=== PATIENT | female | born 1935 | race Hispanic/Latino ===

== ENCOUNTER 2023-05-31 00:19 | Inpatient (IN) | payer MEDICAID, SELFPAY ==
[2023-05-31] MEDS ORDERED: Ipratropium/Albuterol 3 ML NEB ONE (00:46)
[2023-05-31] MEDS ORDERED: Acetaminophen 500 MG TAB ONE (00:53)
[2023-05-31 01:04] LABS: #Basophils 0.1 10x3/uL (0.0-0.2); #Eosinphils 0.1 10x3/uL (0.0-0.5); #Monocytes 0.9 10x3/uL (0.0-1.1); #Neutrophils 8.4 10x3/uL (1.5-8.4); %Basophils 0.7 % (0.0-2.0); %Eosinophils 1.1 % (0.0-6.0); %Lymphocytes 14.1 % (18.0-47.0); %Monocytes 7.4 % (0.0-10.0); %Neutrophils 73.8 % (40.0-75.0); Hematocrit 42.7 % (34.9-44.5); Hemoglobin 14.6 g/dL (12.0-15.5); Mean Corpuscular HGB CONC 34.2 g/dL (32.0-36.0); Mean Corpuscular Hemoglobin 29.9 pg (27.0-33.0); Mean Corpuscular Volume 87.5 fl (81.6-98.3); Mean Platelet Volume 8.4 fl (7.4-10.4); Platelet Count 339 10x3/uL (150-450); RBC Distribution Width 12.1 % (11.5-14.5); Red Blood Cell (RBC) Count 4.88 10x6/uL (3.90-5.03); White Blood Cell (WBC) Count 11.4 10x3/uL (3.5-10.5)
[2023-05-31] MEDS ORDERED: methylPREDNISolone Sod Succ/PF 125 MG/2 ML VIAL ONE (01:07)
[2023-05-31 01:13] LABS: PTT 27.4 sec (22.0-33.0); Prothrombin Time 10.6 sec (9.5-12.1)
[2023-05-31 01:17] LABS: ALT (SGPT) 22 U/L (8-55); AST (SGOT) 20 U/L (5-34); Albumin 3.5 g/dL (3.4-4.8); Alkaline Phosphatase 116 U/L (40-110); Anion Gap 19 mmol/L (10-20); BUN (Urea Nitrogen) 8 mg/dL (9.8-20.1); Bilirubin, Total 0.4 mg/dL (0.2-1.2); Calc. Creatinine Clearance 0 mL/min (70-130); Calcium 8.6 mg/dL (7.8-10.44); Carbon Dioxide 23 mmol/L (23-31); Chloride 94 mmol/L (98-107); Estimated GFR 50; Globulin 3.1 g/dL (2.4-3.5); Glucose 331 mg/dL (83-110); Lipase 34 U/L (8-78); Magnesium 1.3 mg/dL (1.6-2.6); Potassium 4.6 mmol/L (3.5-5.1); Protein, Total 6.6 g/dL (5.8-8.1); Sodium 131 mmol/L (136-145)
[2023-05-31] MEDS ORDERED: Piperacillin/Tazobactam 4.5 GM VIAL ONE (01:17)
[2023-05-31] MEDS ORDERED: Vancomycin 1 GM VIAL ONE (01:17)
[2023-05-31 01:23] LABS: Troponin I 0.012 ng/mL (< 0.028)
[2023-05-31 01:59] LABS: SARS-CoV-2 NAA Rapid Test Not Detected (NotDetected)
[2023-05-31] MEDS ORDERED: Ondansetron PF 4 MG/2 ML Vial IVP PRN (02:47)
[2023-05-31] MEDS ORDERED: Ipratropium/Albuterol 3 ML NEB EZPAP PRN (02:51)
[2023-05-31] MEDS ORDERED: Dextrose 50% Abboject 50 ML SYRINGE SLOW IVP PRN (02:52)
[2023-05-31] MEDS ORDERED: HumaLOG 300 UNITS/3 ML VIAL SC PRN ×2 (02:52)
[2023-05-31] MEDS ORDERED: Dextrose 5% in Water 1,000 ML IV PRN (02:52)
[2023-05-31] MEDS ORDERED: Glucagon 1 MG/ML KIT IM PRN (02:52)
[2023-05-31 04:10] LABS: Lactic Acid 3.7 mmol/L (0.5-2.2)
[2023-05-31 04:15] LABS: Anion Gap 18 mmol/L (10-20); BUN (Urea Nitrogen) 8 mg/dL (9.8-20.1); Calc. Creatinine Clearance 27 mL/min (70-130); Carbon Dioxide 20 mmol/L (23-31); Chloride 96 mmol/L (98-107); Estimated GFR 56; Glucose 312 mg/dL (83-110); Magnesium 1.2 mg/dL (1.6-2.6); Potassium 4.1 mmol/L (3.5-5.1); Sodium 130 mmol/L (136-145)
[2023-05-31 04:22] LABS: #Basophils 0.1 10x3/uL (0.0-0.2); #Eosinphils 0.1 10x3/uL (0.0-0.5); #Monocytes 0.4 10x3/uL (0.0-1.1); #Neutrophils 12.9 10x3/uL (1.5-8.4); %Basophils 0.5 % (0.0-2.0); %Eosinophils 0.5 % (0.0-6.0); %Lymphocytes 5.9 % (18.0-47.0); %Neutrophils 87.8 % (40.0-75.0); Hematocrit 38.5 % (34.9-44.5); Mean Corpuscular HGB CONC 33.8 g/dL (32.0-36.0); Mean Corpuscular Hemoglobin 30.1 pg (27.0-33.0); Mean Corpuscular Volume 89.1 fl (81.6-98.3); Mean Platelet Volume 8.5 fl (7.4-10.4); Platelet Count 330 10x3/uL (150-450); RBC Distribution Width 12.1 % (11.5-14.5); Red Blood Cell (RBC) Count 4.32 10x6/uL (3.90-5.03); White Blood Cell (WBC) Count 14.7 10x3/uL (3.5-10.5)
[2023-05-31] MEDS ORDERED: Magnesium 2 GM/50 ML(in water) 2 GM in Premix 1 BAG IVPB SCH (04:30)
[2023-05-31 04:32] LABS: Free T4 (Free Thyroxine) 1.37 ng/dL (0.70-1.48)
[2023-05-31 04:57] LABS: Base Excess (BEa) -2.1 mEq/L (-2.0 to +3.0); CO2 Tension 40.4 mmHg (35.0-45.0); Calcium, Ionized (arterial) 1.07 mmol/L (1.12-1.30); Carboxyhemoglobin (COHb) 0.1 gm% (0.0-3.0); Hematocrit-ABG 41 % (36.0-47.0); Potassium - ABG Lab 4.31 mmol/L (3.70-5.30); Puncture Site LRA; pH, Arterial 7.373 (7.35-7.45)
[2023-05-31] MEDS: Benzonatate 100 MG CAP PO PRN (04:59)
[2023-05-31] MEDS ORDERED: Vancomycin Dose by Levels Sliding Scale (Wt <71) FS SCH (05:00)
[2023-05-31] MEDS ORDERED: Sodium Chloride 0.9% 1,000 ML IV SCH (05:15)
[2023-05-31] MEDS ORDERED: Sodium Chloride 0.9% 500 ML IV SCH ×2 (05:15→08:30)
[2023-05-31] MEDS: methylPREDNISolone Sod Succ 40 MG VIAL IVP SCH ×2 (06:41→07:52)
[2023-05-31] MEDS: Ipratropium/Albuterol 3 ML NEB NEB SCH ×5 (06:54→22:45)
[2023-05-31 07:41] LABS: Lactic Acid 6.4 mmol/L (0.5-2.2)
[2023-05-31 08:24] LABS: Actual Bicarbonate (HCO3a) 19.3 mEq/L (22-28); Base Excess (BEa) -7.5 mEq/L (-2.0 to +3.0); Calcium, Ionized (arterial) 1.03 mmol/L (1.12-1.30); Carboxyhemoglobin (COHb) 0.3 gm% (0.0-3.0); Hematocrit-ABG 39 % (36.0-47.0); Hemoglobin (Hb) 13.3 g/dL (12.0-16.0); O2 Tension (PaO2), arterial 65.1 mmHg (> 60.0); Potassium - ABG Lab 3.62 mmol/L (3.70-5.30); Puncture Site LBA
[2023-05-31] MEDS ORDERED: Iopamidol 370 76% 100 ML VIAL ONE (08:34)
[2023-05-31] MEDS ORDERED: FLU VACC QS2023(65UP)/MF59C/PF 60 MCG/0.5 ML SYRINGE IM ONE (09:00)
[2023-05-31] MEDS ORDERED: Lantus 1000 UNITS/10 ML VIAL SC SCH (09:00)
[2023-05-31 09:25] LABS: Vancomycin, Random 13.6 ug/mL (See Comment)
[2023-05-31] MEDS: HumaLOG 300 UNITS/3 ML VIAL SC PRN ×3 (09:28→15:41)
[2023-05-31] MEDS: Piperacillin/Tazobactam 3.375 GM in Sodium Chloride 0.9% 100 ML IVPB SCH ×2 (09:41→16:11)
[2023-05-31] MEDS: guaiFENesin/DM ER PO SCH ×2 (10:48→20:29)
[2023-05-31] MEDS: Vancomycin HCl 750 MG in Sodium Chloride 0.9% 250 ML 250 ML IVPB SCH (11:15)
[2023-05-31 12:10] LABS: Lactic Acid 10.6 mmol/L (0.5-2.2)
[2023-05-31] MEDS: Sodium Chloride 0.9% 1,000 ML IV SCH ×2 (12:27→17:51)
[2023-05-31 15:37] LABS: Hemoglobin A1c 9.9 % (4.0-6.0)
[2023-05-31] MEDS: Montelukast Sodium 10 mg Tablet PO SCH (20:29)
[2023-06-01] MEDS: Piperacillin/Tazobactam 3.375 GM in Sodium Chloride 0.9% 100 ML IVPB SCH ×3 (00:18→17:17)
[2023-06-01] MEDS: Ipratropium/Albuterol 3 ML NEB NEB SCH ×6 (02:50→23:10)
[2023-06-01 04:00] LABS: Anion Gap 14 mmol/L (10-20); BUN (Urea Nitrogen) 12 mg/dL (9.8-20.1); Calc. Creatinine Clearance 32 mL/min (70-130); Calcium 7.8 mg/dL (7.8-10.44); Carbon Dioxide 19 mmol/L (23-31); Chloride 108 mmol/L (98-107); Estimated GFR 68; Glucose 130 mg/dL (83-110); Magnesium 2.2 mg/dL (1.6-2.6); Sodium 137 mmol/L (136-145)
[2023-06-01 04:07] LABS: #Monocytes 0.8 10x3/uL (0.0-1.1); #Neutrophils 14.1 10x3/uL (1.5-8.4); %Basophils 0.2 % (0.0-2.0); %Eosinophils 0.1 % (0.0-6.0); %Lymphocytes 3.6 % (18.0-47.0); %Monocytes 4.9 % (0.0-10.0); %Neutrophils 89.4 % (40.0-75.0); Hematocrit 34.4 % (34.9-44.5); Hemoglobin 11.5 g/dL (12.0-15.5); Mean Corpuscular HGB CONC 33.4 g/dL (32.0-36.0); Mean Corpuscular Hemoglobin 30.4 pg (27.0-33.0); Mean Platelet Volume 8.8 fl (7.4-10.4); Platelet Count 320 10x3/uL (150-450); RBC Distribution Width 12.3 % (11.5-14.5); Red Blood Cell (RBC) Count 3.78 10x6/uL (3.90-5.03); White Blood Cell (WBC) Count 15.8 10x3/uL (3.5-10.5)
[2023-06-01] MEDS: Sodium Chloride 0.9% 1,000 ML IV SCH ×3 (08:17→11:49)
[2023-06-01] MEDS: guaiFENesin/DM ER PO SCH ×2 (08:18→21:05)
[2023-06-01] MEDS: methylPREDNISolone Sod Succ 40 MG VIAL IVP SCH (08:20)
[2023-06-01] MEDS: Vancomycin HCl 750 MG in Sodium Chloride 0.9% 250 ML 250 ML IVPB SCH (11:49)
[2023-06-01] MEDS: Lantus 1000 UNITS/10 ML VIAL SC SCH (12:26)
[2023-06-01] MEDS: HumaLOG 300 UNITS/3 ML VIAL SC PRN ×2 (12:27→17:17)
[2023-06-01] MEDS ORDERED: Sodium Chloride 3% (15 ML) NEB NEB SCH (21:00)
[2023-06-01] MEDS: Montelukast Sodium 10 mg Tablet PO SCH (21:05)
[2023-06-02] MEDS: Piperacillin/Tazobactam 3.375 GM in Sodium Chloride 0.9% 100 ML IVPB SCH ×3 (01:50→16:53)
[2023-06-02] MEDS: Sodium Chloride 0.9% 1,000 ML IV SCH ×2 (02:05→16:53)
[2023-06-02] MEDS: Ipratropium/Albuterol 3 ML NEB NEB SCH ×6 (02:30→23:15)
[2023-06-02 03:25] LABS: %Basophils 0.3 % (0.0-2.0); %Eosinophils 0.1 % (0.0-6.0); %Lymphocytes 9.4 % (18.0-47.0); %Monocytes 6.6 % (0.0-10.0); %Neutrophils 82.3 % (40.0-75.0); Hematocrit 37.4 % (34.9-44.5); Hemoglobin 12.2 g/dL (12.0-15.5); Mean Corpuscular HGB CONC 32.6 g/dL (32.0-36.0); Mean Corpuscular Volume 92.1 fl (81.6-98.3); Mean Platelet Volume 8.6 fl (7.4-10.4); Platelet Count 326 10x3/uL (150-450); RBC Distribution Width 12.7 % (11.5-14.5); Red Blood Cell (RBC) Count 4.06 10x6/uL (3.90-5.03); White Blood Cell (WBC) Count 15.8 10x3/uL (3.5-10.5)
[2023-06-02 03:34] LABS: Anion Gap 11 mmol/L (10-20); BUN (Urea Nitrogen) 11 mg/dL (9.8-20.1); Calc. Creatinine Clearance 35 mL/min (70-130); Calcium 8.1 mg/dL (7.8-10.44); Carbon Dioxide 22 mmol/L (23-31); Chloride 108 mmol/L (98-107); Estimated GFR 77; Glucose 65 mg/dL (83-110); Magnesium 1.8 mg/dL (1.6-2.6); Sodium 137 mmol/L (136-145)
[2023-06-02 07:27] LABS: Legionella Urinary Ag Negative (Negative); Strep pneumo Urine Ag NEGATIVE (NEGATIVE)
[2023-06-02] MEDS: methylPREDNISolone Sod Succ 40 MG VIAL IVP SCH (08:20)
[2023-06-02] MEDS: guaiFENesin/DM ER PO SCH ×2 (08:20→20:03)
[2023-06-02] MEDS: Sodium Chloride 3% (15 ML) NEB NEB SCH (08:37)
[2023-06-02 09:41] LABS: Reference Lab Name LABCORP
[2023-06-02] MEDS: Lantus 1000 UNITS/10 ML VIAL SC SCH (10:24)
[2023-06-02] MEDS ORDERED: Lantus 1000 UNITS/10 ML VIAL SC SCH (11:16)
[2023-06-02 11:23] LABS: Vancomycin, Trough 6.5 ug/mL
[2023-06-02] MEDS: HumaLOG 300 UNITS/3 ML VIAL SC PRN ×2 (11:57→17:07)
[2023-06-02] MEDS: Vancomycin HCl 750 MG in Sodium Chloride 0.9% 250 ML 250 ML IVPB SCH (11:59)
[2023-06-02] MEDS: Benzonatate 100 MG CAP PO PRN (13:51)
[2023-06-02] MEDS ORDERED: Amlodipine 10 MG TAB PO SCH (18:30)
[2023-06-02] MEDS: Montelukast Sodium 10 mg Tablet PO SCH (20:04)
[2023-06-02] MEDS: Vancomycin HCl 500 MG in Sodium Chloride 0.9% 100 ML IVPB SCH (23:15)
[2023-06-03] MEDS: Piperacillin/Tazobactam 3.375 GM in Sodium Chloride 0.9% 100 ML IVPB SCH ×3 (00:35→16:58)
[2023-06-03] MEDS: Ipratropium/Albuterol 3 ML NEB NEB SCH ×6 (03:05→23:50)
[2023-06-03] MEDS: Sodium Chloride 3% (15 ML) NEB NEB SCH (03:10)
[2023-06-03 03:24] LABS: #Basophils 0.1 10x3/uL (0.0-0.2); #Monocytes 0.8 10x3/uL (0.0-1.1); #Neutrophils 10.1 10x3/uL (1.5-8.4); %Basophils 0.4 % (0.0-2.0); %Eosinophils 0.2 % (0.0-6.0); %Lymphocytes 11.2 % (18.0-47.0); %Monocytes 6.6 % (0.0-10.0); %Neutrophils 79.2 % (40.0-75.0); Hematocrit 39.3 % (34.9-44.5); Mean Corpuscular HGB CONC 33.1 g/dL (32.0-36.0); Mean Corpuscular Volume 90.8 fl (81.6-98.3); Mean Platelet Volume 8.2 fl (7.4-10.4); Platelet Count 334 10x3/uL (150-450); RBC Distribution Width 12.6 % (11.5-14.5); Red Blood Cell (RBC) Count 4.33 10x6/uL (3.90-5.03); White Blood Cell (WBC) Count 12.8 10x3/uL (3.5-10.5)
[2023-06-03 03:45] LABS: Anion Gap 14 mmol/L (10-20); BUN (Urea Nitrogen) 10 mg/dL (9.8-20.1); Calc. Creatinine Clearance 37 mL/min (70-130); Calcium 8.4 mg/dL (7.8-10.44); Carbon Dioxide 22 mmol/L (23-31); Chloride 104 mmol/L (98-107); Estimated GFR 73; Glucose 127 mg/dL (83-110); Potassium 4.1 mmol/L (3.5-5.1); Sodium 136 mmol/L (136-145)
[2023-06-03] MEDS: Sodium Chloride 0.9% 1,000 ML IV SCH (04:59)
[2023-06-03] MEDS: methylPREDNISolone Sod Succ 40 MG VIAL IVP SCH (08:14)
[2023-06-03] MEDS: guaiFENesin/DM ER PO SCH ×2 (08:14→20:58)
[2023-06-03] MEDS: Amlodipine 10 MG TAB PO SCH (08:14)
[2023-06-03 11:10] LABS: HIV (1/2) Antibody/Antigen Non-Reactive (NonReactive); HIV 1/2 INDEX 0.07 S/CO (<1.00)
[2023-06-03] MEDS: Vancomycin HCl 500 MG in Sodium Chloride 0.9% 100 ML IVPB SCH (11:26)
[2023-06-03] MEDS: HumaLOG 300 UNITS/3 ML VIAL SC PRN ×2 (12:09→16:59)
[2023-06-03] MEDS: Azithromycin 500 MG in Sodium Chloride 0.9% 250 ML 250 ML IVPB SCH (13:15)
[2023-06-03] MEDS: Acetaminophen 325 MG TAB PO PRN (17:14)
[2023-06-03] MEDS: Montelukast Sodium 10 mg Tablet PO SCH (20:58)
[2023-06-04] MEDS: Piperacillin/Tazobactam 3.375 GM in Sodium Chloride 0.9% 100 ML IVPB SCH ×3 (00:16→16:22)
[2023-06-04] MEDS: Ipratropium/Albuterol 3 ML NEB NEB SCH ×6 (03:00→22:45)
[2023-06-04 03:59] LABS: #Monocytes 0.5 10x3/uL (0.0-1.1); #Neutrophils 10.2 10x3/uL (1.5-8.4); %Basophils 0.3 % (0.0-2.0); %Lymphocytes 11.2 % (18.0-47.0); %Monocytes 4.3 % (0.0-10.0); %Neutrophils 81.6 % (40.0-75.0); Hematocrit 37.9 % (34.9-44.5); Hemoglobin 12.6 g/dL (12.0-15.5); Mean Corpuscular HGB CONC 33.2 g/dL (32.0-36.0); Mean Corpuscular Hemoglobin 30.4 pg (27.0-33.0); Mean Corpuscular Volume 91.3 fl (81.6-98.3); Mean Platelet Volume 8.4 fl (7.4-10.4); Platelet Count 308 10x3/uL (150-450); RBC Distribution Width 12.6 % (11.5-14.5); Red Blood Cell (RBC) Count 4.15 10x6/uL (3.90-5.03); White Blood Cell (WBC) Count 12.5 10x3/uL (3.5-10.5)
[2023-06-04 04:07] LABS: Anion Gap 15 mmol/L (10-20); BUN (Urea Nitrogen) 11 mg/dL (9.8-20.1); Calc. Creatinine Clearance 36 mL/min (70-130); Calcium 8.7 mg/dL (7.8-10.44); Carbon Dioxide 24 mmol/L (23-31); Chloride 103 mmol/L (98-107); Estimated GFR 70; Glucose 141 mg/dL (83-110); Potassium 3.9 mmol/L (3.5-5.1); Sodium 138 mmol/L (136-145)
[2023-06-04] MEDS: guaiFENesin/DM ER PO SCH ×2 (08:21→21:20)
[2023-06-04] MEDS: methylPREDNISolone Sod Succ 40 MG VIAL IVP SCH (08:21)
[2023-06-04] MEDS: Amlodipine 10 MG TAB PO SCH (08:21)
[2023-06-04] MEDS: Acetaminophen 325 MG TAB PO PRN (11:31)
[2023-06-04] MEDS: Benzonatate 100 MG CAP PO PRN ×2 (11:31→21:20)
[2023-06-04] MEDS: Azithromycin 500 MG in Sodium Chloride 0.9% 250 ML 250 ML IVPB SCH (12:29)
[2023-06-04 14:37] LABS: QuantiFERON-TB Gold Plus Indeterminate (Negative)
[2023-06-04] MEDS: HumaLOG 300 UNITS/3 ML VIAL SC PRN (16:07)
[2023-06-04] MEDS: Montelukast Sodium 10 mg Tablet PO SCH (21:20)
[2023-06-05] MEDS: Piperacillin/Tazobactam 3.375 GM in Sodium Chloride 0.9% 100 ML IVPB SCH ×3 (00:05→17:10)
[2023-06-05] MEDS: Acetaminophen 325 MG TAB PO PRN ×2 (00:19→07:36)
[2023-06-05] MEDS: Ipratropium/Albuterol 3 ML NEB NEB SCH ×6 (02:40→23:00)
[2023-06-05 04:26] LABS: Anion Gap 16 mmol/L (10-20); BUN (Urea Nitrogen) 13 mg/dL (9.8-20.1); Calc. Creatinine Clearance 38 mL/min (70-130); Calcium 8.6 mg/dL (7.8-10.44); Carbon Dioxide 23 mmol/L (23-31); Chloride 99 mmol/L (98-107); Estimated GFR 77; Glucose 125 mg/dL (83-110); Potassium 3.9 mmol/L (3.5-5.1); Sodium 134 mmol/L (136-145)
[2023-06-05 05:49] LABS: #Basophils 0.1 10x3/uL (0.0-0.2); #Eosinphils 0.2 10x3/uL (0.0-0.5); #Monocytes 0.8 10x3/uL (0.0-1.1); %Basophils 0.5 % (0.0-2.0); %Eosinophils 1.3 % (0.0-6.0); %Lymphocytes 12.8 % (18.0-47.0); %Monocytes 6.1 % (0.0-10.0); %Neutrophils 75.9 % (40.0-75.0); Hematocrit 37.7 % (34.9-44.5); Hemoglobin 12.7 g/dL (12.0-15.5); Mean Corpuscular HGB CONC 33.7 g/dL (32.0-36.0); Mean Corpuscular Hemoglobin 30.5 pg (27.0-33.0); Mean Corpuscular Volume 90.4 fl (81.6-98.3); Mean Platelet Volume 8.1 fl (7.4-10.4); Platelet Count 319 10x3/uL (150-450); RBC Distribution Width 12.6 % (11.5-14.5); Red Blood Cell (RBC) Count 4.17 10x6/uL (3.90-5.03); White Blood Cell (WBC) Count 13.2 10x3/uL (3.5-10.5)
[2023-06-05] MEDS: methylPREDNISolone Sod Succ 40 MG VIAL IVP SCH ×2 (07:33→12:43)
[2023-06-05] MEDS: Benzonatate 100 MG CAP PO PRN (07:35)
[2023-06-05] MEDS: Amlodipine 10 MG TAB PO SCH (07:35)
[2023-06-05] MEDS: guaiFENesin/DM ER PO SCH ×2 (07:36→20:12)
[2023-06-05] MEDS: HumaLOG 300 UNITS/3 ML VIAL SC PRN ×2 (08:02→18:00)
[2023-06-05] MEDS: Azithromycin 500 MG in Sodium Chloride 0.9% 250 ML 250 ML IVPB SCH (12:22)
[2023-06-05] MEDS: Simethicone Chewable 80 MG TAB PO PRN ×2 (12:47→16:38)
[2023-06-05] MEDS ORDERED: Furosemide 20 MG/2 ML VIAL SLOW IVP SCH (13:00)
[2023-06-05] MEDS: Montelukast Sodium 10 mg Tablet PO SCH (20:12)
[2023-06-06] MEDS: HumaLOG 300 UNITS/3 ML VIAL SC PRN ×4 (00:04→17:20)
[2023-06-06] MEDS: Piperacillin/Tazobactam 3.375 GM in Sodium Chloride 0.9% 100 ML IVPB SCH ×3 (00:05→18:49)
[2023-06-06] MEDS: methylPREDNISolone Sod Succ 40 MG VIAL IVP SCH ×2 (00:05→12:08)
[2023-06-06] MEDS: Ipratropium/Albuterol 3 ML NEB NEB SCH ×6 (02:40→22:04)
[2023-06-06 03:55] LABS: #Monocytes 0.2 10x3/uL (0.0-1.1); %Basophils 0.2 % (0.0-2.0); %Lymphocytes 5.3 % (18.0-47.0); %Monocytes 2.1 % (0.0-10.0); Hematocrit 36.3 % (34.9-44.5); Hemoglobin 12.1 g/dL (12.0-15.5); Mean Corpuscular HGB CONC 33.3 g/dL (32.0-36.0); Mean Corpuscular Hemoglobin 30.1 pg (27.0-33.0); Mean Corpuscular Volume 90.3 fl (81.6-98.3); Mean Platelet Volume 8.3 fl (7.4-10.4); Platelet Count 302 10x3/uL (150-450); RBC Distribution Width 12.2 % (11.5-14.5); Red Blood Cell (RBC) Count 4.02 10x6/uL (3.90-5.03); White Blood Cell (WBC) Count 11.1 10x3/uL (3.5-10.5)
[2023-06-06 04:02] LABS: Anion Gap 17 mmol/L (10-20); BUN (Urea Nitrogen) 15 mg/dL (9.8-20.1); Calc. Creatinine Clearance 35 mL/min (70-130); Calcium 8.3 mg/dL (7.8-10.44); Carbon Dioxide 25 mmol/L (23-31); Chloride 97 mmol/L (98-107); Estimated GFR 71; Glucose 196 mg/dL (83-110); Potassium 3.6 mmol/L (3.5-5.1); Sodium 135 mmol/L (136-145)
[2023-06-06] MEDS: Simethicone Chewable 80 MG TAB PO PRN (08:45)
[2023-06-06] MEDS: guaiFENesin/DM ER PO SCH ×2 (08:45→21:00)
[2023-06-06] MEDS: Furosemide 20 MG/2 ML VIAL SLOW IVP SCH (08:45)
[2023-06-06] MEDS: Amlodipine 10 MG TAB PO SCH (08:46)
[2023-06-06] MEDS: Azithromycin 250 MG TAB PO SCH (12:08)
[2023-06-06] MEDS: Montelukast Sodium 10 mg Tablet PO SCH (21:00)
[2023-06-06] MEDS ORDERED: Bisacodyl 10 MG SUPP PR SCH (23:30)
[2023-06-07] MEDS: Piperacillin/Tazobactam 3.375 GM in Sodium Chloride 0.9% 100 ML IVPB SCH ×3 (00:37→18:03)
[2023-06-07] MEDS: methylPREDNISolone Sod Succ 40 MG VIAL IVP SCH ×2 (00:37→12:04)
[2023-06-07] MEDS: Ipratropium/Albuterol 3 ML NEB NEB SCH ×6 (03:00→23:29)
[2023-06-07 03:56] LABS: #Monocytes 0.5 10x3/uL (0.0-1.1); #Neutrophils 11.4 10x3/uL (1.5-8.4); %Basophils 0.2 % (0.0-2.0); %Lymphocytes 4.9 % (18.0-47.0); %Monocytes 3.6 % (0.0-10.0); %Neutrophils 89.1 % (40.0-75.0); Hematocrit 35.8 % (34.9-44.5); Mean Corpuscular HGB CONC 33.5 g/dL (32.0-36.0); Mean Corpuscular Hemoglobin 30.7 pg (27.0-33.0); Mean Corpuscular Volume 91.6 fl (81.6-98.3); Mean Platelet Volume 8.3 fl (7.4-10.4); Platelet Count 306 10x3/uL (150-450); RBC Distribution Width 12.3 % (11.5-14.5); Red Blood Cell (RBC) Count 3.91 10x6/uL (3.90-5.03); White Blood Cell (WBC) Count 12.8 10x3/uL (3.5-10.5)
[2023-06-07 04:04] LABS: Anion Gap 15 mmol/L (10-20); BUN (Urea Nitrogen) 19 mg/dL (9.8-20.1); Calc. Creatinine Clearance 34 mL/min (70-130); Calcium 8.7 mg/dL (7.8-10.44); Carbon Dioxide 26 mmol/L (23-31); Chloride 100 mmol/L (98-107); Estimated GFR 67; Glucose 193 mg/dL (83-110); Potassium 3.8 mmol/L (3.5-5.1); Sodium 137 mmol/L (136-145)
[2023-06-07] MEDS: HumaLOG 300 UNITS/3 ML VIAL SC PRN ×4 (04:59→21:41)
[2023-06-07] MEDS ORDERED: Azithromycin 250 MG TAB PO SCH (09:00)
[2023-06-07] MEDS: Amlodipine 10 MG TAB PO SCH (09:29)
[2023-06-07] MEDS: Furosemide 20 MG/2 ML VIAL SLOW IVP SCH (09:30)
[2023-06-07] MEDS: guaiFENesin/DM ER PO SCH ×2 (09:30→21:36)
[2023-06-07] MEDS: Azithromycin 250 MG TAB PO SCH (12:04)
[2023-06-07] MEDS: Montelukast Sodium 10 mg Tablet PO SCH (21:36)
[2023-06-08] MEDS: Piperacillin/Tazobactam 3.375 GM in Sodium Chloride 0.9% 100 ML IVPB SCH ×3 (01:14→16:51)
[2023-06-08] MEDS: methylPREDNISolone Sod Succ 40 MG VIAL IVP SCH ×3 (01:45→23:36)
[2023-06-08] MEDS: Ipratropium/Albuterol 3 ML NEB NEB SCH ×6 (02:19→23:15)
[2023-06-08] MEDS: HumaLOG 300 UNITS/3 ML VIAL SC PRN ×2 (06:19→21:43)
[2023-06-08 08:40] LABS: #Basophils 0.1 10x3/uL (0.0-0.2); #Neutrophils 8.6 10x3/uL (1.5-8.4); %Basophils 0.4 % (0.0-2.0); %Lymphocytes 13.7 % (18.0-47.0); %Monocytes 8.5 % (0.0-10.0); %Neutrophils 73.4 % (40.0-75.0); Hematocrit 37.6 % (34.9-44.5); Hemoglobin 12.4 g/dL (12.0-15.5); Mean Corpuscular Hemoglobin 30.2 pg (27.0-33.0); Mean Corpuscular Volume 91.5 fl (81.6-98.3); Mean Platelet Volume 8.5 fl (7.4-10.4); Platelet Count 361 10x3/uL (150-450); RBC Distribution Width 12.2 % (11.5-14.5); Red Blood Cell (RBC) Count 4.11 10x6/uL (3.90-5.03); White Blood Cell (WBC) Count 11.8 10x3/uL (3.5-10.5)
[2023-06-08 08:54] LABS: Anion Gap 12 mmol/L (10-20); BUN (Urea Nitrogen) 24 mg/dL (9.8-20.1); Calc. Creatinine Clearance 35 mL/min (70-130); Calcium 8.9 mg/dL (7.8-10.44); Carbon Dioxide 30 mmol/L (23-31); Chloride 101 mmol/L (98-107); Estimated GFR 73; Glucose 117 mg/dL (83-110); Potassium 3.2 mmol/L (3.5-5.1); Sodium 140 mmol/L (136-145)
[2023-06-08] MEDS: Amlodipine 10 MG TAB PO SCH (09:33)
[2023-06-08] MEDS: guaiFENesin/DM ER PO SCH ×2 (09:34→21:39)
[2023-06-08] MEDS: Furosemide 20 MG/2 ML VIAL SLOW IVP SCH (09:34)
[2023-06-08] MEDS ORDERED: Polyethylene Glycol 3350 17 GM Packet PO PRN (10:06)
[2023-06-08] MEDS: Azithromycin 250 MG TAB PO SCH (11:56)
[2023-06-08] MEDS: Montelukast Sodium 10 mg Tablet PO SCH (21:39)
[2023-06-09] MEDS: Ipratropium/Albuterol 3 ML NEB NEB SCH ×5 (03:45→21:05)
[2023-06-09 03:58] LABS: #Monocytes 0.3 10x3/uL (0.0-1.1); %Basophils 0.3 % (0.0-2.0); %Lymphocytes 4.6 % (18.0-47.0); %Monocytes 2.9 % (0.0-10.0); %Neutrophils 89.3 % (40.0-75.0); Hematocrit 36.1 % (34.9-44.5); Hemoglobin 11.9 g/dL (12.0-15.5); Mean Corpuscular Hemoglobin 30.3 pg (27.0-33.0); Mean Corpuscular Volume 91.9 fl (81.6-98.3); Mean Platelet Volume 8.5 fl (7.4-10.4); Platelet Count 340 10x3/uL (150-450); RBC Distribution Width 12.1 % (11.5-14.5); Red Blood Cell (RBC) Count 3.93 10x6/uL (3.90-5.03); White Blood Cell (WBC) Count 11.2 10x3/uL (3.5-10.5)
[2023-06-09 04:01] LABS: Anion Gap 16 mmol/L (10-20); BUN (Urea Nitrogen) 26 mg/dL (9.8-20.1); Calc. Creatinine Clearance 35 mL/min (70-130); Calcium 8.8 mg/dL (7.8-10.44); Carbon Dioxide 27 mmol/L (23-31); Chloride 101 mmol/L (98-107); Estimated GFR 72; Glucose 196 mg/dL (83-110); Potassium 3.7 mmol/L (3.5-5.1); Sodium 140 mmol/L (136-145)
[2023-06-09 05:13] VITALS: BMI 23.2
[2023-06-09] MEDS: HumaLOG 300 UNITS/3 ML VIAL SC PRN ×2 (05:17→17:22)
[2023-06-09] MEDS: Amlodipine 10 MG TAB PO SCH (09:08)
[2023-06-09] MEDS: Benzonatate 100 MG CAP PO PRN (09:13)
[2023-06-09] MEDS: Furosemide 20 MG/2 ML VIAL SLOW IVP SCH (09:13)
[2023-06-09] MEDS: guaiFENesin/DM ER PO SCH ×2 (09:13→20:49)
[2023-06-09] MEDS: methylPREDNISolone Sod Succ 40 MG VIAL IVP SCH ×2 (12:00→23:06)
[2023-06-09] MEDS: Azithromycin 250 MG TAB PO SCH (12:01)
[2023-06-09] MEDS: Montelukast Sodium 10 mg Tablet PO SCH (20:49)
[2023-06-09] MEDS: Acetaminophen 325 MG TAB PO PRN (22:02)
[2023-06-10] MEDS: Ipratropium/Albuterol 3 ML NEB NEB SCH ×4 (03:10→11:31)
[2023-06-10 04:14] LABS: #Monocytes 0.3 10x3/uL (0.0-1.1); #Neutrophils 11.1 10x3/uL (1.5-8.4); %Basophils 0.2 % (0.0-2.0); %Lymphocytes 7.6 % (18.0-47.0); %Monocytes 2.2 % (0.0-10.0); %Neutrophils 87.6 % (40.0-75.0); Hematocrit 35.1 % (34.9-44.5); Hemoglobin 11.5 g/dL (12.0-15.5); Mean Corpuscular HGB CONC 32.8 g/dL (32.0-36.0); Mean Corpuscular Hemoglobin 30.4 pg (27.0-33.0); Mean Corpuscular Volume 92.9 fl (81.6-98.3); Mean Platelet Volume 8.8 fl (7.4-10.4); Platelet Count 345 10x3/uL (150-450); RBC Distribution Width 12.2 % (11.5-14.5); Red Blood Cell (RBC) Count 3.78 10x6/uL (3.90-5.03); White Blood Cell (WBC) Count 12.7 10x3/uL (3.5-10.5)
[2023-06-10 04:16] LABS: Anion Gap 13 mmol/L (10-20); BUN (Urea Nitrogen) 27 mg/dL (9.8-20.1); Calc. Creatinine Clearance 38 mL/min (70-130); Calcium 8.7 mg/dL (7.8-10.44); Carbon Dioxide 29 mmol/L (23-31); Chloride 101 mmol/L (98-107); Estimated GFR 78; Glucose 228 mg/dL (83-110); Potassium 3.7 mmol/L (3.5-5.1); Sodium 139 mmol/L (136-145)
[2023-06-10] MEDS: HumaLOG 300 UNITS/3 ML VIAL SC PRN ×2 (05:29→13:36)
[2023-06-10] MEDS: Furosemide 20 MG/2 ML VIAL SLOW IVP SCH (09:46)
[2023-06-10] MEDS: guaiFENesin/DM ER PO SCH ×2 (09:46→20:58)
[2023-06-10] MEDS: Amlodipine 10 MG TAB PO SCH (09:47)
[2023-06-10] MEDS ORDERED: Ipratropium Bromide 2.5 ml Neb NEB PRN (11:10)
[2023-06-10] MEDS ORDERED: Metoprolol Tartrate 25 MG TAB PO SCH (12:00)
[2023-06-10] MEDS: Azithromycin 250 MG TAB PO SCH (12:35)
[2023-06-10] MEDS ORDERED: Ketorolac Tromethamine 30 MG/ML VIAL IVP SCH (18:00)
[2023-06-10] MEDS: Simethicone Chewable 80 MG TAB PO PRN ×2 (18:22→20:59)
[2023-06-10 20:38] LABS: Coccidioides ABS (DID) Negative (Neg:<1:2)
[2023-06-10] MEDS: Montelukast Sodium 10 mg Tablet PO SCH (20:59)
[2023-06-11] MEDS: Metoprolol Tartrate 25 MG TAB PO SCH ×3 (00:45→20:14)
[2023-06-11 04:29] LABS: Carbon Dioxide 27 mmol/L (23-31); Chloride 102 mmol/L (98-107); Potassium 3.4 mmol/L (3.5-5.1); Sodium 140 mmol/L (136-145)
[2023-06-11 04:30] LABS: Anion Gap 14 mmol/L (10-20); BUN (Urea Nitrogen) 31 mg/dL (9.8-20.1); Calc. Creatinine Clearance 37 mL/min (70-130); Calcium 8.5 mg/dL (7.8-10.44); Estimated GFR 75; Glucose 131 mg/dL (83-110)
[2023-06-11 04:36] LABS: #Eosinphils 0.2 10x3/uL (0.0-0.5); #Monocytes 0.8 10x3/uL (0.0-1.1); #Neutrophils 8.2 10x3/uL (1.5-8.4); %Basophils 0.4 % (0.0-2.0); %Eosinophils 1.3 % (0.0-6.0); %Lymphocytes 17.3 % (18.0-47.0); %Monocytes 6.7 % (0.0-10.0); %Neutrophils 71.6 % (40.0-75.0); Hematocrit 33.8 % (34.9-44.5); Hemoglobin 11.2 g/dL (12.0-15.5); Mean Corpuscular HGB CONC 33.1 g/dL (32.0-36.0); Mean Corpuscular Hemoglobin 30.4 pg (27.0-33.0); Mean Corpuscular Volume 91.8 fl (81.6-98.3); Mean Platelet Volume 8.5 fl (7.4-10.4); Platelet Count 332 10x3/uL (150-450); RBC Distribution Width 12.3 % (11.5-14.5); Red Blood Cell (RBC) Count 3.68 10x6/uL (3.90-5.03); White Blood Cell (WBC) Count 11.4 10x3/uL (3.5-10.5)
[2023-06-11] MEDS: Amlodipine 10 MG TAB PO SCH (08:25)
[2023-06-11] MEDS: methylPREDNISolone Sod Succ 40 MG VIAL IVP SCH (08:25)
[2023-06-11] MEDS: Furosemide 20 MG/2 ML VIAL SLOW IVP SCH (08:25)
[2023-06-11] MEDS: guaiFENesin/DM ER PO SCH ×2 (08:26→20:13)
[2023-06-11 11:13] LABS: Histoplasma Abs, Quant, DID Negative (Neg:<1:1)
[2023-06-11] MEDS: HumaLOG 300 UNITS/3 ML VIAL SC PRN ×2 (11:26→18:13)
[2023-06-11] MEDS: Simethicone Chewable 80 MG TAB PO PRN (16:41)
[2023-06-11] MEDS: Montelukast Sodium 10 mg Tablet PO SCH (20:14)
[2023-06-12 04:30] LABS: Anion Gap 15 mmol/L (10-20); BUN (Urea Nitrogen) 24 mg/dL (9.8-20.1); Calc. Creatinine Clearance 40 mL/min (70-130); Calcium 8.5 mg/dL (7.8-10.44); Carbon Dioxide 26 mmol/L (23-31); Chloride 99 mmol/L (98-107); Estimated GFR 83; Glucose 101 mg/dL (83-110); Potassium 3.2 mmol/L (3.5-5.1); Sodium 137 mmol/L (136-145)
[2023-06-12 04:33] LABS: #Basophils 0.1 10x3/uL (0.0-0.2); #Eosinphils 0.1 10x3/uL (0.0-0.5); #Monocytes 0.9 10x3/uL (0.0-1.1); #Neutrophils 9.6 10x3/uL (1.5-8.4); %Basophils 0.5 % (0.0-2.0); %Eosinophils 0.9 % (0.0-6.0); %Monocytes 6.9 % (0.0-10.0); %Neutrophils 75.8 % (40.0-75.0); Hematocrit 34.6 % (34.9-44.5); Hemoglobin 11.7 g/dL (12.0-15.5); Mean Corpuscular HGB CONC 33.8 g/dL (32.0-36.0); Mean Corpuscular Volume 91.8 fl (81.6-98.3); Mean Platelet Volume 8.9 fl (7.4-10.4); Platelet Count 351 10x3/uL (150-450); Red Blood Cell (RBC) Count 3.77 10x6/uL (3.90-5.03); White Blood Cell (WBC) Count 12.7 10x3/uL (3.5-10.5)
[2023-06-12] MEDS: methylPREDNISolone Sod Succ 40 MG VIAL IVP SCH (08:39)
[2023-06-12] MEDS: Furosemide 20 MG/2 ML VIAL SLOW IVP SCH (08:39)
[2023-06-12] MEDS: guaiFENesin/DM ER PO SCH ×2 (08:40→21:14)
[2023-06-12] MEDS: Amlodipine 10 MG TAB PO SCH (08:40)
[2023-06-12] MEDS: Metoprolol Tartrate 25 MG TAB PO SCH ×2 (08:40→21:14)
[2023-06-12] MEDS: Simethicone Chewable 80 MG TAB PO PRN ×2 (09:18→20:12)
[2023-06-12] MEDS: HumaLOG 300 UNITS/3 ML VIAL SC PRN ×2 (11:56→17:06)
[2023-06-12] MEDS: Montelukast Sodium 10 mg Tablet PO SCH (21:14)
[2023-06-13 03:36] LABS: #Eosinphils 0.1 10x3/uL (0.0-0.5); #Monocytes 0.8 10x3/uL (0.0-1.1); #Neutrophils 9.2 10x3/uL (1.5-8.4); %Basophils 0.3 % (0.0-2.0); %Eosinophils 0.7 % (0.0-6.0); %Lymphocytes 13.2 % (18.0-47.0); %Monocytes 7.1 % (0.0-10.0); %Neutrophils 77.3 % (40.0-75.0); Hematocrit 34.8 % (34.9-44.5); Hemoglobin 11.4 g/dL (12.0-15.5); Mean Corpuscular HGB CONC 32.8 g/dL (32.0-36.0); Mean Corpuscular Volume 91.6 fl (81.6-98.3); Mean Platelet Volume 8.8 fl (7.4-10.4); Platelet Count 331 10x3/uL (150-450); RBC Distribution Width 12.1 % (11.5-14.5); White Blood Cell (WBC) Count 11.9 10x3/uL (3.5-10.5)
[2023-06-13 03:52] LABS: Anion Gap 15 mmol/L (10-20); BUN (Urea Nitrogen) 18 mg/dL (9.8-20.1); Calc. Creatinine Clearance 44 mL/min (70-130); Carbon Dioxide 26 mmol/L (23-31); Chloride 99 mmol/L (98-107); Potassium 3.6 mmol/L (3.5-5.1); Sodium 136 mmol/L (136-145)
[2023-06-13 03:53] LABS: Calcium 8.4 mg/dL (7.8-10.44); Estimated GFR 85; Glucose 95 mg/dL (83-110)
[2023-06-13] MEDS: methylPREDNISolone Sod Succ 40 MG VIAL IVP SCH ×4 (08:29→23:51)
[2023-06-13] MEDS: Furosemide 20 MG/2 ML VIAL SLOW IVP SCH (08:30)
[2023-06-13] MEDS: Metoprolol Tartrate 25 MG TAB PO SCH ×2 (08:30→21:59)
[2023-06-13] MEDS: Amlodipine 10 MG TAB PO SCH (08:30)
[2023-06-13] MEDS: guaiFENesin/DM ER PO SCH (08:32)
[2023-06-13] MEDS: HumaLOG 300 UNITS/3 ML VIAL SC PRN (11:25)
[2023-06-13] MEDS: traMADol HCl 50 MG TAB PO PRN (12:28)
[2023-06-13] MEDS: Simethicone Chewable 80 MG TAB PO PRN (18:15)
[2023-06-13] MEDS: Ipratropium/Albuterol 3 ML NEB NEB PRN (19:50)
[2023-06-13] MEDS: guaiFENesin ER 600 MG TAB PO SCH (21:56)
[2023-06-13] MEDS: Montelukast Sodium 10 mg Tablet PO SCH (21:56)
[2023-06-13] MEDS: Ascorbic Acid 500 mg Chewable Tablet PO SCH (21:57)
[2023-06-14] MEDS: methylPREDNISolone Sod Succ 40 MG VIAL IVP SCH ×3 (05:38→22:19)
[2023-06-14] MEDS: Metoprolol Tartrate 25 MG TAB PO SCH ×2 (08:12→20:35)
[2023-06-14] MEDS: guaiFENesin ER 600 MG TAB PO SCH ×2 (08:12→20:34)
[2023-06-14] MEDS: Simethicone Chewable 80 MG TAB PO PRN (08:12)
[2023-06-14] MEDS: Ascorbic Acid 500 mg Chewable Tablet PO SCH ×2 (08:13→20:35)
[2023-06-14] MEDS: Amlodipine 10 MG TAB PO SCH (08:13)
[2023-06-14] MEDS: Cholecalciferol 1,000 UNITS (25 MCG) TAB PO SCH (09:11)
[2023-06-14] MEDS: Simethicone Chewable 80 MG TAB PO SCH ×4 (09:12→22:19)
[2023-06-14] MEDS: HumaLOG 300 UNITS/3 ML VIAL SC PRN ×2 (11:00→15:57)
[2023-06-14] MEDS: Ipratropium/Albuterol 3 ML NEB NEB PRN (20:05)
[2023-06-14] MEDS: Montelukast Sodium 10 mg Tablet PO SCH (20:34)
[2023-06-15] MEDS: Ipratropium/Albuterol 3 ML NEB NEB PRN ×2 (02:30→07:50)
[2023-06-15 03:57] LABS: #Monocytes 0.3 10x3/uL (0.0-1.1); #Neutrophils 12.2 10x3/uL (1.5-8.4); %Eosinophils 0.1 % (0.0-6.0); %Monocytes 1.9 % (0.0-10.0); %Neutrophils 91.2 % (40.0-75.0); Hematocrit 33.2 % (34.9-44.5); Mean Corpuscular HGB CONC 36.1 g/dL (32.0-36.0); Mean Corpuscular Volume 85.8 fl (81.6-98.3); Mean Platelet Volume 9.3 fl (7.4-10.4); Platelet Count 351 10x3/uL (150-450); RBC Distribution Width 11.9 % (11.5-14.5); Red Blood Cell (RBC) Count 3.87 10x6/uL (3.90-5.03); White Blood Cell (WBC) Count 13.4 10x3/uL (3.5-10.5)
[2023-06-15 04:12] LABS: Anion Gap 17 mmol/L (10-20); BUN (Urea Nitrogen) 26 mg/dL (9.8-20.1); Calc. Creatinine Clearance 36 mL/min (70-130); Calcium 8.6 mg/dL (7.8-10.44); Carbon Dioxide 22 mmol/L (23-31); Chloride 92 mmol/L (98-107); Estimated GFR 78; Glucose 221 mg/dL (83-110); Potassium 3.6 mmol/L (3.5-5.1); Sodium 127 mmol/L (136-145)
[2023-06-15] MEDS: methylPREDNISolone Sod Succ 40 MG VIAL IVP SCH ×2 (06:19→18:22)
[2023-06-15] MEDS: HumaLOG 300 UNITS/3 ML VIAL SC PRN ×2 (06:33→11:45)
[2023-06-15] MEDS ORDERED: Ipratropium/Albuterol 3 ML NEB ONE (07:15)
[2023-06-15] MEDS: guaiFENesin ER 600 MG TAB PO SCH ×2 (08:55→21:53)
[2023-06-15] MEDS: Cholecalciferol 1,000 UNITS (25 MCG) TAB PO SCH (08:55)
[2023-06-15] MEDS: Amlodipine 10 MG TAB PO SCH (08:56)
[2023-06-15] MEDS: Ascorbic Acid 500 mg Chewable Tablet PO SCH (08:56)
[2023-06-15] MEDS: Simethicone Chewable 80 MG TAB PO SCH ×4 (08:57→22:02)
[2023-06-15] MEDS: Metoprolol Tartrate 25 MG TAB PO SCH ×2 (08:57→21:53)
[2023-06-15] MEDS ORDERED: Sodium Chloride 0.9% 1,000 ML IV SCH (11:30)
[2023-06-15] MEDS ORDERED: Lantus 1000 UNITS/10 ML VIAL SC SCH (11:45)
[2023-06-15] MEDS ORDERED: Lidocaine 2% Viscous Solution 20 ML, Aluminum & Magnesium Hydroxide 30 ML SSW SCH (14:00)
[2023-06-15] MEDS ORDERED: Scopolamine 1 mg/72 hour Patch TOP SCH (14:45)
[2023-06-15] MEDS ORDERED: methylPREDNISolone Sod Succ 40 MG VIAL IVP SCH (20:00)
[2023-06-15] MEDS: Ipratropium/Albuterol 3 ML NEB NEB SCH (21:00)
[2023-06-15] MEDS: Montelukast Sodium 10 mg Tablet PO SCH (21:53)
[2023-06-15] MEDS: Pantoprazole 40 MG VIAL IVP SCH (21:54)
[2023-06-16] MEDS: methylPREDNISolone Sod Succ 40 MG VIAL IVP SCH ×3 (06:13→21:36)
[2023-06-16] MEDS: Ipratropium/Albuterol 3 ML NEB NEB SCH ×3 (07:14→19:30)
[2023-06-16] MEDS: Simethicone Chewable 80 MG TAB PO SCH ×4 (08:57→21:36)
[2023-06-16] MEDS: Metoprolol Tartrate 25 MG TAB PO SCH ×2 (08:57→20:18)
[2023-06-16] MEDS: guaiFENesin ER 600 MG TAB PO SCH ×2 (08:57→20:18)
[2023-06-16] MEDS: Amlodipine 10 MG TAB PO SCH (08:57)
[2023-06-16] MEDS: Pantoprazole 40 MG VIAL IVP SCH ×2 (08:57→20:18)
[2023-06-16] MEDS: Lantus 1000 UNITS/10 ML VIAL SC SCH (08:58)
[2023-06-16] MEDS: HumaLOG 300 UNITS/3 ML VIAL SC PRN ×3 (11:47→21:56)
[2023-06-16] MEDS: Montelukast Sodium 10 mg Tablet PO SCH (20:18)
[2023-06-17] MEDS: methylPREDNISolone Sod Succ 40 MG VIAL IVP SCH ×3 (05:14→21:02)
[2023-06-17] MEDS: Ipratropium/Albuterol 3 ML NEB NEB SCH ×3 (07:50→20:50)
[2023-06-17] MEDS: Pantoprazole 40 MG VIAL IVP SCH ×2 (08:40→21:02)
[2023-06-17] MEDS: Amlodipine 10 MG TAB PO SCH (08:40)
[2023-06-17] MEDS: Metoprolol Tartrate 25 MG TAB PO SCH ×2 (08:40→20:51)
[2023-06-17] MEDS: guaiFENesin ER 600 MG TAB PO SCH ×2 (08:40→20:52)
[2023-06-17] MEDS: Simethicone Chewable 80 MG TAB PO SCH ×4 (08:41→22:13)
[2023-06-17] MEDS: HumaLOG 300 UNITS/3 ML VIAL SC PRN ×2 (08:42→12:33)
[2023-06-17] MEDS: Lantus 1000 UNITS/10 ML VIAL SC SCH (08:47)
[2023-06-17] MEDS: Montelukast Sodium 10 mg Tablet PO SCH (20:51)
[2023-06-18] MEDS: HumaLOG 300 UNITS/3 ML VIAL SC PRN (00:30)
[2023-06-18 06:18] LABS: #Monocytes 0.4 10x3/uL (0.0-1.1); #Neutrophils 12.3 10x3/uL (1.5-8.4); %Basophils 0.1 % (0.0-2.0); %Lymphocytes 4.6 % (18.0-47.0); %Monocytes 2.8 % (0.0-10.0); %Neutrophils 91.7 % (40.0-75.0); Hematocrit 31.6 % (34.9-44.5); Hemoglobin 10.6 g/dL (12.0-15.5); Mean Corpuscular HGB CONC 33.5 g/dL (32.0-36.0); Mean Corpuscular Hemoglobin 30.5 pg (27.0-33.0); Mean Corpuscular Volume 90.8 fl (81.6-98.3); Mean Platelet Volume 10.1 fl (7.4-10.4); Platelet Count 324 10x3/uL (150-450); RBC Distribution Width 12.3 % (11.5-14.5); Red Blood Cell (RBC) Count 3.48 10x6/uL (3.90-5.03); White Blood Cell (WBC) Count 13.4 10x3/uL (3.5-10.5)
[2023-06-18] MEDS: methylPREDNISolone Sod Succ 40 MG VIAL IVP SCH ×2 (06:22→15:20)
[2023-06-18 06:25] LABS: Anion Gap 16 mmol/L (10-20); BUN (Urea Nitrogen) 19 mg/dL (9.8-20.1); Calc. Creatinine Clearance 41 mL/min (70-130); Calcium 8.5 mg/dL (7.8-10.44); Carbon Dioxide 20 mmol/L (23-31); Chloride 104 mmol/L (98-107); Estimated GFR 85; Glucose 148 mg/dL (83-110); Sodium 135 mmol/L (136-145)
[2023-06-18 06:26] LABS: Potassium 4.6 mmol/L (3.5-5.1)
[2023-06-18] MEDS: Ipratropium/Albuterol 3 ML NEB NEB SCH ×3 (07:30→20:05)
[2023-06-18] MEDS: Metoprolol Tartrate 25 MG TAB PO SCH ×2 (09:09→22:28)
[2023-06-18] MEDS: Lantus 1000 UNITS/10 ML VIAL SC SCH (09:09)
[2023-06-18] MEDS: Amlodipine 10 MG TAB PO SCH (09:09)
[2023-06-18] MEDS: guaiFENesin ER 600 MG TAB PO SCH ×2 (09:10→22:28)
[2023-06-18] MEDS: Simethicone Chewable 80 MG TAB PO SCH ×4 (09:10→22:30)
[2023-06-18] MEDS: Pantoprazole 40 MG VIAL IVP SCH ×2 (09:10→22:27)
[2023-06-18] MEDS: Montelukast Sodium 10 mg Tablet PO SCH (22:27)
[2023-06-19] MEDS: Ipratropium/Albuterol 3 ML NEB NEB PRN (03:45)
[2023-06-19] MEDS: Ipratropium/Albuterol 3 ML NEB NEB SCH ×3 (08:10→20:00)
[2023-06-19] MEDS: guaiFENesin ER 600 MG TAB PO SCH ×2 (08:25→21:26)
[2023-06-19] MEDS: Metoprolol Tartrate 25 MG TAB PO SCH ×2 (08:25→21:26)
[2023-06-19] MEDS: predniSONE 20 MG TAB PO SCH (08:25)
[2023-06-19] MEDS: Amlodipine 10 MG TAB PO SCH (08:25)
[2023-06-19] MEDS: Lantus 1000 UNITS/10 ML VIAL SC SCH (08:25)
[2023-06-19] MEDS: Pantoprazole 40 MG VIAL IVP SCH ×2 (08:25→21:26)
[2023-06-19] MEDS: Simethicone Chewable 80 MG TAB PO SCH ×4 (08:25→21:26)
[2023-06-19] MEDS: HumaLOG 300 UNITS/3 ML VIAL SC PRN ×2 (13:25→21:27)
[2023-06-19] MEDS: Montelukast Sodium 10 mg Tablet PO SCH (21:26)
[2023-06-20] MEDS: traMADol HCl 50 MG TAB PO PRN (01:47)
[2023-06-20 07:09] LABS: #Neutrophils 9.9 10x3/uL (1.5-8.4); %Basophils 0.2 % (0.0-2.0); %Eosinophils 0.2 % (0.0-6.0); %Lymphocytes 12.8 % (18.0-47.0); %Monocytes 8.1 % (0.0-10.0); %Neutrophils 76.8 % (40.0-75.0); Hematocrit 33.4 % (34.9-44.5); Hemoglobin 11.2 g/dL (12.0-15.5); Mean Corpuscular HGB CONC 33.5 g/dL (32.0-36.0); Mean Corpuscular Hemoglobin 29.8 pg (27.0-33.0); Mean Corpuscular Volume 88.8 fl (81.6-98.3); Platelet Count 311 10x3/uL (150-450); RBC Distribution Width 12.5 % (11.5-14.5); Red Blood Cell (RBC) Count 3.76 10x6/uL (3.90-5.03); White Blood Cell (WBC) Count 12.9 10x3/uL (3.5-10.5)
[2023-06-20 07:46] LABS: Anion Gap 15 mmol/L (10-20); BUN (Urea Nitrogen) 14 mg/dL (9.8-20.1); Calc. Creatinine Clearance 43 mL/min (70-130); Calcium 8.3 mg/dL (7.8-10.44); Carbon Dioxide 24 mmol/L (23-31); Chloride 101 mmol/L (98-107); Estimated GFR 86; Glucose 80 mg/dL (83-110); Potassium 3.1 mmol/L (3.5-5.1); Sodium 137 mmol/L (136-145)
[2023-06-20] MEDS: Ipratropium/Albuterol 3 ML NEB NEB SCH ×3 (09:05→19:48)
[2023-06-20] MEDS: Metoprolol Tartrate 25 MG TAB PO SCH ×2 (09:56→20:21)
[2023-06-20] MEDS: Amlodipine 10 MG TAB PO SCH (09:56)
[2023-06-20] MEDS: predniSONE 20 MG TAB PO SCH (09:57)
[2023-06-20] MEDS: Simethicone Chewable 80 MG TAB PO SCH ×3 (09:57→20:21)
[2023-06-20] MEDS: guaiFENesin ER 600 MG TAB PO SCH ×2 (09:57→20:21)
[2023-06-20] MEDS: Lantus 1000 UNITS/10 ML VIAL SC SCH (09:57)
[2023-06-20] MEDS ORDERED: Potassium Chloride 20 MEQ TAB PO SCH (16:30)
[2023-06-20] MEDS: HumaLOG 300 UNITS/3 ML VIAL SC PRN (17:40)
[2023-06-20] MEDS: Montelukast Sodium 10 mg Tablet PO SCH (20:21)
[2023-06-21 01:20] VITALS: BP 118/58; TEMP 98.5
== END 2023-06-20 21:00 | disposition home or self-care (01) | DRG 871 ==
LOC: CSHERS 00:19 → CSHTELE 00:47 → CSHICU 08:56 → CSHTELE 06-07 16:11 → CSHIMCU 06-10 18:47 → CSHTELE 06-17 13:01
PROVIDERS: ADMIT Internal Medicine; ATTEND Internal Medicine
PROC: 4A133R1 Monitoring of Arterial Saturation, Peripheral, Percutaneous Approach (ICD-10-PCS; principal; 2023-05-31)
PROC: 3E03329 Introduction of Other Anti-infective into Peripheral Vein, Percutaneous Approach (ICD-10-PCS; 2023-05-31)
PROC: 5A0955A Assistance with Respiratory Ventilation, Greater than 96 Consecutive Hours, High Flow/Velocity Cannula (ICD-10-PCS; 2023-05-31)
PROC: 0T9B70Z Drainage of Bladder with Drainage Device, Via Natural or Artificial Opening (ICD-10-PCS; 2023-06-18)
DX: A41.9 Sepsis, unspecified organism (principal); I50.31 Acute diastolic (congestive) heart failure; J18.9 Pneumonia, unspecified organism; J96.01 Acute respiratory failure with hypoxia; J45.901 Unspecified asthma with (acute) exacerbation; J44.1 Chronic obstructive pulmonary disease with (acute) exacerbation; E87.20 Acidosis, unspecified; Z66 Do not resuscitate; K21.9 Gastro-esophageal reflux disease without esophagitis; R91.8 Other nonspecific abnormal finding of lung field; R59.0 Localized enlarged lymph nodes; E83.42 Hypomagnesemia; Z20.822 Contact with and (suspected) exposure to COVID-19; E11.65 Type 2 diabetes mellitus with hyperglycemia; E11.649 Type 2 diabetes mellitus with hypoglycemia without coma; R53.1 Weakness; R33.9 Retention of urine, unspecified; Z79.899 Other long term (current) drug therapy; I11.0 Hypertensive heart disease with heart failure
CPT/HCPCS: 36415; 36416; 36600; 71045; 71275; 74230; 80048; 80053; 80202; 82306; 82805; 83036; 83605; 83615; 83690; 83735; 83880; 84145; 84439; 84443; 84481; 84484; 85025; 85610; 85730; 86140; 86480; 86635; 86698; 86769; 87040; 87070; 87081; 87116; 87205; 87206; 87385; 87389; 87449; 87633; 87635; 87899; 93005; 93010; 93306; 94640; 94667; 94668; 94760; 94762; 96365; 96375; C9113; J0456; J1650; J1815; J1885; J1940; J2543; J2920; J2930; J3370; J3475; J3490; J7030; J7050; J7512; J7611; J7620; Q9967

== ENCOUNTER 2023-07-01 00:56 | Inpatient (IN) | payer MEDICAID ==
[2023-07-01 02:17] LABS: #Basophils 0.1 10x3/uL (0.0-0.2); #Monocytes 0.9 10x3/uL (0.0-1.1); #Neutrophils 11.1 10x3/uL (1.5-8.4); %Basophils 0.3 % (0.0-2.0); %Eosinophils 0.1 % (0.0-6.0); %Monocytes 6.5 % (0.0-10.0); %Neutrophils 76.6 % (40.0-75.0); Hematocrit 38.3 % (34.9-44.5); Mean Corpuscular HGB CONC 33.9 g/dL (32.0-36.0); Mean Corpuscular Hemoglobin 30.1 pg (27.0-33.0); Mean Corpuscular Volume 88.7 fl (81.6-98.3); Mean Platelet Volume 8.3 fl (7.4-10.4); Platelet Count 272 10x3/uL (150-450); RBC Distribution Width 12.6 % (11.5-14.5); Red Blood Cell (RBC) Count 4.32 10x6/uL (3.90-5.03); White Blood Cell (WBC) Count 14.4 10x3/uL (3.5-10.5)
[2023-07-01 02:25] LABS: ALT (SGPT) 48 U/L (8-55); AST (SGOT) 28 U/L (5-34); Albumin 3.8 g/dL (3.4-4.8); Alkaline Phosphatase 76 U/L (40-110); Anion Gap 17 mmol/L (10-20); BUN (Urea Nitrogen) 24 mg/dL (9.8-20.1); Bilirubin, Total 0.4 mg/dL (0.2-1.2); Calc. Creatinine Clearance 0 mL/min (70-130); Calcium 8.9 mg/dL (7.8-10.44); Carbon Dioxide 24 mmol/L (23-31); Chloride 99 mmol/L (98-107); Estimated GFR 65; Globulin 3.2 g/dL (2.4-3.5); Glucose 169 mg/dL (83-110); Potassium 3.5 mmol/L (3.5-5.1); Sodium 136 mmol/L (136-145)
[2023-07-01 02:29] LABS: SARS-CoV-2 NAA Rapid Test Not Detected (NotDetected)
[2023-07-01 02:31] LABS: Troponin I Less than 0.010 ng/mL (< 0.028)
[2023-07-01 02:52] LABS: Bilirubin Neg (Negative); Blood, Urine 25 (Negative); Clarity Slightly Cloudy (Clear); Glucose, Urine (Dipstick) 250 mg/dL (Negative); Ketone, Urine Negative (Negative); Leukocyte 500 (Negative); Nitrite Positive (Negative); Protein, Urine (Dipstick) 15 mg/dl (Neg-Trace); Specific Gravity, Urine 1.015 (1.005-1.030); Urobilinogen Normal mg/dL (Less than 2)
[2023-07-01 03:27] LABS: Bacteria/HPF 3+ HPF (None Seen); CAUTI Indications for Culture Alt mental st,lethar; RBC/HPF 0-3 HPF (0-3); Squamous Epithelial 0-3 HPF (0-3); WBC/HPF 21-50 HPF (0-3)
[2023-07-01 03:29] LABS: Urine Culture Reflex Yes Yes
[2023-07-01] MEDS ORDERED: cefTRIAXone (ROCEPHIN) 1 GM VIAL ONE (04:04)
[2023-07-01] MEDS ORDERED: Acetaminophen 325 MG TAB PO PRN (06:18)
[2023-07-01] MEDS ORDERED: HumaLOG 300 UNITS/3 ML VIAL SC PRN (06:18)
[2023-07-01] MEDS ORDERED: Glucagon 1 MG/ML KIT IM PRN (06:18)
[2023-07-01] MEDS ORDERED: Dextrose 5% in Water 1,000 ML IV PRN (06:18)
[2023-07-01] MEDS ORDERED: Dextrose 50% Abboject 50 ML SYRINGE SLOW IVP PRN (06:18)
[2023-07-01] MEDS ORDERED: Senokot S 8.6-50 MG TAB PO PRN (06:18)
[2023-07-01] MEDS ORDERED: Calcium Carbonate 500 MG ChewTAB PO PRN (06:18)
[2023-07-01] MEDS ORDERED: Ondansetron PF 4 MG/2 ML Vial IVP PRN (06:18)
[2023-07-01] MEDS ORDERED: Ipratropium/Albuterol 3 ML NEB NEB PRN (06:23)
[2023-07-01] MEDS ORDERED: cefTRIAXone\\ROCEPHIN 1 GM in Sodium Chloride 0.9% 100 ML IVPB SCH (07:00)
[2023-07-01] MEDS ORDERED: Ipratropium/Albuterol 3 ML NEB NEB SCH (07:00)
[2023-07-01] MEDS ORDERED: Metoprolol Tartrate 25 MG TAB ONE (08:27)
[2023-07-01] MEDS ORDERED: Famotidine 20 MG TAB ONE (08:27)
[2023-07-01] MEDS ORDERED: Amlodipine 5 MG TAB ONE (08:27)
[2023-07-01] MEDS: Amlodipine 10 MG TAB PO SCH (08:48)
[2023-07-01] MEDS ORDERED: Ipratropium/Albuterol 3 ML NEB ONE (08:49)
[2023-07-01] MEDS: Metoprolol Tartrate 25 MG TAB PO SCH ×2 (08:49→20:42)
[2023-07-01] MEDS: Doxycycline 100 MG CAP PO SCH ×2 (09:00→20:42)
[2023-07-01] MEDS ORDERED: Famotidine 20 MG TAB PO SCH (09:00)
[2023-07-01] MEDS: guaiFENesin ER 600 MG TAB PO SCH ×2 (09:00→20:43)
[2023-07-01] MEDS ORDERED: Iopamidol 370 76% 100 ML VIAL ONE (12:34)
[2023-07-01 17:54] VITALS: BMI 21.5
[2023-07-01] MEDS: metFORMIN 500 MG TAB PO SCH (18:53)
[2023-07-01] MEDS: Mometasone/Formoterol 60 PUFF AER INH SCH (19:15)
[2023-07-01] MEDS: Montelukast Sodium 10 mg Tablet PO SCH (20:42)
[2023-07-02] MEDS ORDERED: cefTRIAXone\\ROCEPHIN 2 GM in Sodium Chloride 0.9% 100 ML IVPB SCH (03:00)
[2023-07-02] MEDS: Guaifenesin DM 100-10/5 ML UDCUP PO PRN ×3 (04:00→17:19)
[2023-07-02 06:37] LABS: #Eosinphils 0.1 10x3/uL (0.0-0.5); #Monocytes 0.7 10x3/uL (0.0-1.1); #Neutrophils 7.4 10x3/uL (1.5-8.4); %Basophils 0.4 % (0.0-2.0); %Eosinophils 1.3 % (0.0-6.0); %Lymphocytes 18.9 % (18.0-47.0); %Monocytes 7.2 % (0.0-10.0); %Neutrophils 71.1 % (40.0-75.0); Hematocrit 34.3 % (34.9-44.5); Hemoglobin 11.8 g/dL (12.0-15.5); Mean Corpuscular HGB CONC 34.4 g/dL (32.0-36.0); Mean Platelet Volume 8.3 fl (7.4-10.4); Platelet Count 241 10x3/uL (150-450); RBC Distribution Width 13.2 % (11.5-14.5); Red Blood Cell (RBC) Count 3.81 10x6/uL (3.90-5.03); White Blood Cell (WBC) Count 10.3 10x3/uL (3.5-10.5)
[2023-07-02 06:45] LABS: Anion Gap 12 mmol/L (10-20); BUN (Urea Nitrogen) 11 mg/dL (9.8-20.1); Calc. Creatinine Clearance 36 mL/min (70-130); Calcium 8.4 mg/dL (7.8-10.44); Carbon Dioxide 28 mmol/L (23-31); Chloride 102 mmol/L (98-107); Estimated GFR 85; Glucose 82 mg/dL (83-110); Sodium 138 mmol/L (136-145)
[2023-07-02] MEDS: Mometasone/Formoterol 60 PUFF AER INH SCH ×2 (06:59→18:35)
[2023-07-02] MEDS: Amlodipine 10 MG TAB PO SCH (08:39)
[2023-07-02] MEDS: Metoprolol Tartrate 25 MG TAB PO SCH ×2 (08:39→21:45)
[2023-07-02] MEDS: metFORMIN 500 MG TAB PO SCH ×2 (08:39→17:19)
[2023-07-02] MEDS: Doxycycline 100 MG CAP PO SCH ×2 (08:40→21:06)
[2023-07-02] MEDS: guaiFENesin ER 600 MG TAB PO SCH ×2 (08:40→21:07)
[2023-07-02] MEDS ORDERED: predniSONE 20 MG TAB PO SCH (09:00)
[2023-07-02] MEDS ORDERED: Famotidine 20 MG TAB PO SCH (09:00)
[2023-07-02] MEDS ORDERED: Furosemide 20 MG/2 ML VIAL SLOW IVP SCH (09:00)
[2023-07-02] MEDS: Vancomycin HCl 500 MG in Sodium Chloride 0.9% 100 ML IVPB SCH (10:50)
[2023-07-02] MEDS: Cefepime 1 GM in Sodium Chloride 0.9% 100 ML IVPB SCH ×2 (10:50→21:07)
[2023-07-02] MEDS ORDERED: VANCOMYCIN 1.25 GM/250 ML BAG IVPB SCH (21:00)
[2023-07-02] MEDS: Montelukast Sodium 10 mg Tablet PO SCH (21:07)
[2023-07-03] MEDS: Guaifenesin DM 100-10/5 ML UDCUP PO PRN (01:55)
[2023-07-03 05:14] LABS: #Monocytes 0.7 10x3/uL (0.0-1.1); #Neutrophils 8.1 10x3/uL (1.5-8.4); %Basophils 0.2 % (0.0-2.0); %Eosinophils 0.3 % (0.0-6.0); %Lymphocytes 18.8 % (18.0-47.0); %Monocytes 6.6 % (0.0-10.0); Hematocrit 32.3 % (34.9-44.5); Hemoglobin 11.3 g/dL (12.0-15.5); Mean Corpuscular Hemoglobin 31.1 pg (27.0-33.0); Mean Platelet Volume 8.4 fl (7.4-10.4); Platelet Count 262 10x3/uL (150-450); RBC Distribution Width 12.7 % (11.5-14.5); Red Blood Cell (RBC) Count 3.63 10x6/uL (3.90-5.03); White Blood Cell (WBC) Count 11.1 10x3/uL (3.5-10.5)
[2023-07-03 05:27] LABS: Anion Gap 14 mmol/L (10-20); BUN (Urea Nitrogen) 18 mg/dL (9.8-20.1); Calc. Creatinine Clearance 33 mL/min (70-130); Calcium 8.5 mg/dL (7.8-10.44); Carbon Dioxide 25 mmol/L (23-31); Chloride 101 mmol/L (98-107); Estimated GFR 83; Glucose 81 mg/dL (83-110); Potassium 3.7 mmol/L (3.5-5.1); Sodium 136 mmol/L (136-145)
[2023-07-03] MEDS: Mometasone/Formoterol 60 PUFF AER INH SCH (07:04)
[2023-07-03] MEDS ORDERED: predniSONE 20 MG TAB PO SCH ×2 (08:00)
[2023-07-03] MEDS: Vancomycin HCl 500 MG in Sodium Chloride 0.9% 100 ML IVPB SCH (08:09)
[2023-07-03] MEDS: Doxycycline 100 MG CAP PO SCH (08:10)
[2023-07-03] MEDS: guaiFENesin ER 600 MG TAB PO SCH (08:10)
[2023-07-03] MEDS: Cefepime 1 GM in Sodium Chloride 0.9% 100 ML IVPB SCH (08:10)
[2023-07-03] MEDS: metFORMIN 500 MG TAB PO SCH (08:10)
[2023-07-03] MEDS: Amlodipine 10 MG TAB PO SCH (08:11)
[2023-07-03] MEDS: Metoprolol Tartrate 25 MG TAB PO SCH (08:11)
[2023-07-03 13:46] VITALS: BP 137/62; TEMP 98.1
== END 2023-07-03 14:00 | disposition home or self-care (01) | DRG 637 ==
LOC: CSHERS 00:56 → CSHERHOLD 06:18 → CSHTELE 10:27 → OBSVTOIN 07-02 09:04
PROVIDERS: ADMIT Student in an Organized Health Care Education/Training Program; ATTEND Hospitalist
PROC: 0T9B70Z Drainage of Bladder with Drainage Device, Via Natural or Artificial Opening (ICD-10-PCS; principal; 2023-07-02)
DX: E11.649 Type 2 diabetes mellitus with hypoglycemia without coma (principal); J96.21 Acute and chronic respiratory failure with hypoxia; N39.0 Urinary tract infection, site not specified; J84.9 Interstitial pulmonary disease, unspecified; Z79.899 Other long term (current) drug therapy; Z79.84 Long term (current) use of oral hypoglycemic drugs; K21.9 Gastro-esophageal reflux disease without esophagitis; I10 Essential (primary) hypertension; Z11.52 Encounter for screening for COVID-19; Z66 Do not resuscitate; N31.9 Neuromuscular dysfunction of bladder, unspecified
CPT/HCPCS: 36415; 36416; 51702; 71045; 71275; 80048; 80053; 81001; 83880; 84484; 85025; 85379; 87077; 87081; 87086; 87186; 93005; 94640; 94644; 94760; 96372; 96374; 96376; G0378; J0692; J0696; J1650; J1940; J2405; J3370; J3490; J7512; J7620; Q9967